=== PATIENT | male | born 1980 | race Caucasian/White ===

== ENCOUNTER 2021-07-17 14:20 | Emergency (ER) | payer MEDICAID ==
[~2021-07-17] VITALS: Ht 180.3 cm; Wt 74.8 kg
[2021-07-17 15:05] VITALS: BP 129/78
--- NOTE | 2021-07-17 16:45 | NUR ---
PT AMBULATED TO ER BED 11
[2021-07-17] MEDS ORDERED: LIDOCAINE MPF 1% 10 MG/ML VIAL INJ ONE (17:20)
--- NOTE | 2021-07-17 17:41 | NUR ---
41/M BIB SELF WITH C/O RIGHT ELBOW PAIN AND SWELLING X10 DAYS. PATIENT STATES 5 DAYS AGO HE WAS SEEN AND DX WITH BURSITIS AND GIVEN ANTIBIOTICS. PATIENT STATES PAIN AND SWELLING HAS WORSENED THE LAST TWO DAYS. PATIENT REPORTS 0/10 PAIN RIGHT NOW, STATES PAIN ONLY OCCURS WITH TOUCHING OF SITE. PATIENT DENIES FEVERS, CHILLS, NUMBNESS, INJURY OR WEAKNESS.
[2021-07-17] MEDS ORDERED: NAPR-54 PO (17:54)
[2021-07-17] MEDS ORDERED: CEPH-588 PO (17:54)
--- NOTE | 2021-07-17 18:22 | NUR ---
PER [facility] PT LEFT ELBOW WAS PLACE IN AN SOLO WRAP.
[2021-07-17 18:25] VITALS: BP 129/78
--- NOTE | 2021-07-17 18:25 | NUR ---
Patient discharged with v/s stable. Written and verbal after care instructions ABOUT BURSITIS given and explained. Patient alert, oriented and verbalized understanding of instructions. Ambulatory with steady gait. All questions addressed prior to discharge. ID band removed. Patient advised to follow up with PMD. Rx of KEFLEX AND NAPROSYN given. Patient educated on indication of medication including possible reaction and side effects. Opportunity to ask questions provided and answered.
== END 2021-07-17 18:25 | disposition home or self-care (01) ==
LOC: MED 14:20
DX: M70.31 Other bursitis of elbow, right elbow (principal); Z79.2 Long term (current) use of antibiotics; Z79.1 Long term (current) use of non-steroidal anti-inflammatories (NSAID)
CPT/HCPCS: 10160; 99284; J2001

== ENCOUNTER 2022-12-03 17:34 | Emergency (ER) | payer MEDICAID ==
[~2022-12-03] VITALS: Ht 180.3 cm; Wt 77.1 kg
[~2022-12-03 17:34] MED LIST: CEPH-588 PO; NAPR-54 PO
[2022-12-03 17:50] VITALS: BP 140/94
--- NOTE | 2022-12-03 17:54 | NUR ---
RIGHT SHOULDER PAIN(04/21) ONSET YESTERDAY, STATES THAT HE DIVED INTO A SWIMMING POOL BUT DID NOT HIT ANY SOLID PART OF THE POOL.
[2022-12-03] MEDS ORDERED: IBUP-2213 PO (19:48)
--- NOTE | 2022-12-03 20:50 | NUR ---
Pt. left without D/C instructions.
== END 2022-12-03 20:50 | disposition home or self-care (01) ==
LOC: MED 17:34
DX: S43.401A Unspecified sprain of right shoulder joint, initial encounter (principal); Z79.1 Long term (current) use of non-steroidal anti-inflammatories (NSAID); Z79.2 Long term (current) use of antibiotics; W22.8XXA Striking against or struck by other objects, initial encounter; Y92.34 Swimming pool (public) as the place of occurrence of the external cause; Y93.11 Activity, swimming; Y99.8 Other external cause status
CPT/HCPCS: 73030; 99283